=== PATIENT | male | born 2000 | race Caucasian/White ===

== ENCOUNTER 2020-12-06 22:50 | Emergency (ER) | payer OTHER, SELFPAY ==
--- NOTE | ~2020-12-06 | XR_ITS ---
XR hand RT min 3V DATE: 12/06/2020 23:40 INDICATION: Crushing injury at dorsal right hand at third metacarpophalangeal joint on TECHNIQUE: 3 views COMPARISON: None FINDINGS: No fracture or dislocation, periosteal reaction or bone destruction. IMPRESSION: Negative Reviewed, dictated and finalized at location A. 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
[2020-12-06 22:53] VITALS: BP 131/74; PULSE 72; RESP 16; TEMP 36.9; O2SAT 98
--- NOTE | 2020-12-07 00:22 | ED.GENADULT ---
HPI - General Adult General Chief complaint: Extremity Injury, Upper Stated complaint: right hand pain Time Seen by Provider: 12/07/20 00:04 Source: patient History of Present Illness HPI narrative: Patient is a 20 y/o male complaining of right hand pain after dropping a washer on his right hand earlier today. He took Tylenol, which helped slightly. He describes his pain as cramping and rates his pain as 5/10. He is able to move all fingers. Review of Systems Constitutional: Constitutional: Denies chills, Denies fever(s), Denies headache(s) and Denies weakness Eyes: Eyes: Denies blurry vision ENT: Denies headache(s) and Denies neck pain Cardiovascular: Cardiovascular: Denies chest pain and Denies dyspnea Respiratory: Respiratory: Denies cough and Denies dyspnea Gastrointestinal: Gastrointestinal: Denies abdominal pain, Denies diarrhea, Denies nausea and Denies vomiting Genitourinary: Genitourinary: Denies hematuria and Denies dysuria Musculoskeletal: Musculoskeletal: Denies back pain, Denies neck pain and Reports other (right hand pain) Neurologic: Denies headache(s) and Denies weakness Exam Const: General: no acute distress and well developed Orientation/consciousness: oriented to person, oriented to place, oriented to time and patient oriented x3 HENMT: Head: normocephalic Ears: external ears normal General nose exam: Normal external nose present Eyes: General: appearance normal, both eyes and all related structures Conjunctivae: conjunctivae normal Chest: Chest palpation & inspection: tenderness Skin: General skin exam: normal color and turgor normal Neuro: General: oriented to person, oriented to place, oriented to time and patient oriented x3 Cognition (Neuro): normal cognition Extrem: General: normal to inspection, full ROM and no pedal edema Right upper extremity: Extremity exam: right hand no swelling; no tenderness Course Vital Signs Vital signs: Vital Signs Temperature 36.9 C 12/06/20 22:53 Pulse Rate 72 12/06/20 22:53 Respiratory Rate 16 12/06/20 22:53 Blood Pressure 131/74 12/06/20 22:53 Pulse Oximetry 98 12/06/20 22:53 Temperature 36.9 C 12/06/20 22:53 Pulse Rate 98 12/07/20 00:30 Respiratory Rate 17 12/07/20 00:30 Blood Pressure 133/78 12/07/20 00:30 Pulse Oximetry 98 12/07/20 00:30 Medical Decision Making Vital Signs Vital Signs: Vital Signs Temperature 36.9 C 12/06/20 22:53 Pulse Rate 72 12/06/20 22:53 Respiratory Rate 16 12/06/20 22:53 Blood Pressure 131/74 12/06/20 22:53 Pulse Oximetry 98 12/06/20 22:53 Temperature 36.9 C 12/06/20 22:53 Pulse Rate 98 12/07/20 00:30 Respiratory Rate 17 12/07/20 00:30 Blood Pressure 133/78 12/07/20 00:30 Pulse Oximetry 98 12/07/20 00:30 Discharge Plan Discharge Clinical Impression: Contusion of hand, right Qualifiers: Encounter type: initial encounter Qualified Code(s): S60.221A - Contusion of right hand, initial encounter Patient Disposition: Home, Self-Care Condition: Stable Instructions: Contusion in Adults (ED) Follow-up/Referrals: PHYSICIAN,STORE MERCHANDISER [Primary Care Provider] - Stand Alone Forms: Work/School Release IP
[2020-12-07 00:30] VITALS: BP 133/78; PULSE 98; RESP 17; O2SAT 98
== END 2020-12-07 00:30 | disposition home or self-care (01) ==
PROVIDERS: Emergency Provider Emergency Medicine
DX: S60.221A Contusion of right hand, initial encounter (principal); W20.8XXA Other cause of strike by thrown, projected or falling object, initial encounter
CPT/HCPCS: 73130; 99283

== ENCOUNTER 2020-12-07 21:37 | Emergency (ER) | payer OTHER, SELFPAY ==
[2020-12-07 21:40] VITALS: BP 141/80; PULSE 75; RESP 20; TEMP 36.3; O2SAT 99
--- NOTE | 2020-12-07 22:02 | ED.DENTAL ---
HPI - Dental/Oral General Chief complaint: Dental/Oral Stated complaint: Tooth Pain Time Seen by Provider: 12/07/20 21:41 Source: patient Mode of arrival: ambulatory Limitations: no limitations History of Present Illness HPI Narrative: Patient is a 20-year-old male who presents with tender swollen right lower molar for the last day noting aching pain pain is remained constant took Tylenol with minimal improvement notes history of gross dental decay denies URI symptoms or vomiting presents in no distress Related Data Allergies Allergy/AdvReac Type Severity Reaction Status Date / Time Sulfa (Sulfonamide Allergy Rash Verified 12/07/20 21:42 Antibiotics) Review of Systems Review of Systems: All systems reviewed & are unremarkable except as noted in HPI and below PMFSH Social History Social History (Updated 12/07/20 @ 22:03 by Dipak Carter PA-C) Smoking status: Never smoker Gender identity (if verbalized by the patient): Male Exam Narrative: Exam Narrative: GENERAL: Well-appearing, well-nourished, and in no acute distress. HEAD: Normocephalic, atraumatic. EYES: PERRLA and EOMI. ENT: Nares clear, no rhinorrhea or epistaxis. Mucous membranes moist. Patient with abscess right posterior molar remainder of extremity unremarkable aside from gross dental decay. Floor the mouth is soft no trismus or drooling. Uvula midline NECK: Supple. No adenopathy or masses. EXTREMITIES: Normal range of motion. No edema. SKIN: Warm, dry, no rash. NEURO: No focal deficits. Alert and oriented x3. PSYCH: Normal mood and affect. Course Course Emergency Course: Patient in the room no distress aware of case findings treatment plan diagnosis agreeing to follow-up with dentistry provided with reasons to return Vital Signs Vital signs: Vital Signs Temperature 97.3 F L 12/07/20 21:40 Pulse Rate 75 12/07/20 21:40 Respiratory Rate 20 12/07/20 21:40 Blood Pressure 141/80 H 12/07/20 21:40 Pulse Oximetry 99 12/07/20 21:40 Temperature 97.3 F L 12/07/20 21:40 Pulse Rate 75 12/07/20 21:40 Respiratory Rate 20 12/07/20 21:40 Blood Pressure 141/80 H 12/07/20 21:40 Pulse Oximetry 99 12/07/20 21:40 Procedures Abscess I/D oral: Date of Incision: 12/07/20 Time of Incision: 22:04 Side (if applicable): right Technique: needle aspiration (Single straight incision with 18-gauge needle) I&D Results: Pus and Blood Complications: pain MDM - Dental/Oral MDM Narrative Medical decision making narrative: Patients pain and complaint coupled with physical findings are consistent with dentalgia. There are no focal signs of space occupying lesions that are compromising to the airway. The floor of the mouth is soft with no signs of Garland Angina. Patient is without trismus or drooling and able to swallow secretions. Patient is felt appropriate for discharge home with dental follow up. Discharge Plan Discharge Clinical Impression: Dental abscess Patient Disposition: Home, Self-Care Condition: Stable Instructions: Antibiotic Form, Dental Abscess (ED) Additional Instructions: Follow-up with dentistry in the next 7 days Return if symptoms worsen or concerns or any increase in redness swelling pain fever over 100.5 vomiting or unable to open the mouth or swallow Follow patient education sheets Only take medications as directed Prescriptions: New amoxicillin 500 mg capsule 500 mg PO Q8H 10 Days Qty: 30 RF: 0 chlorhexidine gluconate [Peridex] 0.12 % mouthwash 15 ml mucous membrane BID Qty: 1500 RF: 0 ibuprofen [IBU] 600 mg tablet 600 mg PO Q6H PRN (Reason: fever or pain) Qty: 7 RF: 0 Follow-up/Referrals: Dental Referral Line [Outside] [facility] [Outside] [facility] [place] [Outside] [facility] [Outside] PHYSICIAN,DIRECTOR OF COLLECTIONS [Primary Care Provider] - Stand Alone Forms: Work/School Release IP
[2020-12-07] MEDS: AMOXICILLIN 500 MG CAPSULE PO (22:23)
[2020-12-07] MEDS: HYDROcodone/acetaminophen (*CRX) 5-325 MG TABLET 1 TAB PO (22:23)
== END 2020-12-07 22:45 | disposition home or self-care (01) ==
LOC: ANHED 22:16
PROVIDERS: Emergency Provider Emergency Medicine
DX: K04.7 Periapical abscess without sinus (principal)
CPT/HCPCS: 41800; 99283; A9270

== ENCOUNTER 2021-03-16 19:07 | Emergency (ER) | payer OTHER, SELFPAY ==
--- NOTE | ~2021-03-16 | XR_ITS ---
EXAMINATION: XR chest 1V portable DATE: 03/16/2021 19:37 INDICATION: Cough. TECHNIQUE: A single frontal view of the chest was obtained. COMPARISON: None. FINDINGS: The chest demonstrates clear lungs without pneumonia, pleural effusion, or pneumothorax. Th e heart size is normal. IMPRESSION: 1. No acute cardiopulmonary disease. Reviewed, dictated and finalized at location A.
[2021-03-16 19:13] VITALS: BP 144/86; PULSE 97; RESP 18; TEMP 36.4; O2SAT 100
--- NOTE | 2021-03-16 19:49 | ED.GENADULT ---
HPI - General Adult General Chief complaint: Fever Stated complaint: wants covid tested. fever Time Seen by Provider: 03/16/21 19:19 Source: patient and RN notes reviewed Mode of arrival: ambulatory Limitations: no limitations History of Present Illness HPI narrative: Patient is a 20-year-old male who presents to emergency department for evaluation of headache congestion rhinorrhea minimally productive cough also noting that he cannot smell or taste symptoms for 3 days denies vomiting or diarrhea. History of tobacco abuse. Denies any dyspnea. Patient has not taken anything for his symptoms denies any exposures Related Data Allergies Allergy/AdvReac Type Severity Reaction Status Date / Time Sulfa (Sulfonamide Allergy Rash Verified 03/16/21 19:18 Antibiotics) Review of Systems Review of Systems: All systems reviewed & are unremarkable except as noted in HPI and below PMFSH Social History Social History (Updated 03/16/21 @ 19:54 by Dipak Carter PA-C) Smoking status: Current every day smoker Gender identity (if verbalized by the patient): Male Sexual Orientation (if Verbalized by the Patient): Straight or Heterosexual Exam Narrative: Exam Narrative: GENERAL: Well-appearing, well-nourished, and in no acute distress. HEAD: Normocephalic, atraumatic. EYES: PERRLA and EOMI. ENT: Nares clear, no rhinorrhea or epistaxis. Mucous membranes moist. CHEST: Clear to auscultation. No respiratory distress. No wheezes rales or rhonchi HEART: Regular rate and rhythm. No murmur heard. EXTREMITIES: Normal range of motion. No edema. SKIN: Warm, dry, no rash. NEURO: No focal deficits. Alert and oriented x3. PSYCH: Normal mood and affect. Course Course Emergency Course: Patient was tested for Covid was made aware that he will have to follow with primary care java solutions architect to get his results. Patient was instructed that he himself cannot call and get these results. Patient is afebrile nontoxic-appearing no distress no emesis no hypoxemia no pneumonia seen on exam. Patient provided with reasons to return. Patient advised to purchase a oximeter to follow his oxygen Vital Signs Vital signs: Vital Signs Temperature 97.6 F 03/16/21 19:13 Pulse Rate 97 03/16/21 19:13 Respiratory Rate 18 03/16/21 19:13 Blood Pressure 144/86 H 03/16/21 19:13 Pulse Oximetry 100 03/16/21 19:13 Temperature 97.6 F 03/16/21 19:13 Pulse Rate 97 03/16/21 19:13 Respiratory Rate 18 03/16/21 19:13 Blood Pressure 144/86 H 03/16/21 19:13 Pulse Oximetry 100 03/16/21 19:13 Medical Decision Making MDM Narrative Medical decision making narrative: Patient with upper respiratory symptoms no distress will be tested for Covid no pneumonia felt appropriate for outpatient reevaluation Vital Signs Vital Signs: Vital Signs Temperature 97.6 F 03/16/21 19:13 Pulse Rate 97 03/16/21 19:13 Respiratory Rate 18 03/16/21 19:13 Blood Pressure 144/86 H 03/16/21 19:13 Pulse Oximetry 100 03/16/21 19:13 Temperature 97.6 F 03/16/21 19:13 Pulse Rate 97 03/16/21 19:13 Respiratory Rate 18 03/16/21 19:13 Blood Pressure 144/86 H 03/16/21 19:13 Pulse Oximetry 100 03/16/21 19:13 Lab Data Labs: Lab Results 03/16/21 Range/Units 19:32 SARS-CoV-2 RNA (RT-PCR) Pending Discharge Plan Discharge Clinical Impression: Acute upper respiratory infection Patient Disposition: Home, Self-Care Condition: Stable Instructions: Antibiotic Form, Upper Respiratory Infection (ED) Additional Instructions: Follow up with your primary care provider within 1-2 days to set up for reevaluation and to obtain your COVID-19 results. Go to ER for shortness of breath, difficulty breathing, chest pain, fever/chills, weakness, nauseau/vomitting, etc. or any other concerns. Self quarantine until you have received your results Take any prescribed medications as directed. Purchase home oximeter if your oxygen
[2021-03-16 20:10] VITALS: BP 132/78; PULSE 84; RESP 16; O2SAT 97
[2021-03-17 18:42] LABS: SARS-CoV-2 RNA PCR Negative
== END 2021-03-16 20:10 | disposition home or self-care (01) ==
PROVIDERS: Emergency Medicine Emergency Medical Services; Emergency Provider Family Medicine
DX: J06.9 Acute upper respiratory infection, unspecified (principal); Z20.822 Contact with and (suspected) exposure to COVID-19; F17.200 Nicotine dependence, unspecified, uncomplicated
CPT/HCPCS: 71045; 99283; C9803; U0003; U0005

== ENCOUNTER 2021-05-17 11:39 | Emergency (ER) | payer OTHER, SELFPAY ==
[2021-05-17 12:01] VITALS: BP 132/83; PULSE 95; RESP 15; TEMP 37.1; O2SAT 100
--- NOTE | 2021-05-17 12:40 | PC.NURSE ---
Arrives ambulatory steady gait from triage, R middle finger swelling I pick my nails a lot , and I think it's going into my bloodstream, there is a red streak going up my arm . No resp distress, afebrile. CMS intact
--- NOTE | 2021-05-17 13:12 | ED.WOUNDLAC ---
HPI - Wound/Laceration General Chief Complaint: Wound/Laceration Stated Complaint: finger infection Time Seen by Provider: 05/17/21 12:08 Source: patient Mode of arrival: ambulatory Limitations: no limitations History of Present Illness HPI narrative: Patient is a 20-year-old male who presents with redness and tenderness to right middle finger. Patient reports tenderness started last p.m., he reports he bites fingernails often. Patient reports awaking this morning with red streaking up arm to elbow. He reports tenderness with palpation, denies taking any [id number] medications prior to arrival. Patient denies significant medical history. Related Data Allergies Allergy/AdvReac Type Severity Reaction Status Date / Time Sulfa (Sulfonamide Allergy Rash Verified 03/16/21 19:18 Antibiotics) Review of Systems Review of Systems: Narrative: CONSTITUTIONAL: Denies fever, chills, or sweats. EYES: Denies visual changes, redness, or discharge. ENT: Denies rhinorrhea, congestion, sore throat, or otalgia. CARDIOVASCULAR: Denies chest pain, palpitations, or edema. RESPIRATORY: Denies cough or dyspnea. GASTROINTESTINAL: Denies abdominal pain, nausea, vomiting, or diarrhea. GENITOURINARY: Denies dysuria or hematuria. SKIN: Denies rash or itching. MUSCULOSKELETAL: Denies back pain, joint pain, or myalgia. NEUROLOGIC: Denies headache, numbness, dizziness, or weakness. PSYCHIATRIC: Denies anxiety or depression. [facility] Social History Social History (Updated 03/16/21 @ 19:54 by Dipak Carter PA-C) Smoking status: Current every day smoker Gender identity (if verbalized by the patient): Male Exam Narrative: Exam Narrative: GENERAL: Well-appearing, well-nourished, and in no acute distress. HEAD: Normocephalic, atraumatic. EYES: EOMI. No redness or drainage. Conjunctiva are normal. ENT: Mucous membranes pink and moist. Nares clear. No rhinorrhea. TMs normal bilaterally. Throat normal. Uvula midline. NECK: AROM. Supple. No lymphadenopathy. CHEST: No respiratory distress. Clear to auscultation. HEART: Regular rate and rhythm. No murmur appreciated. Normal peripheral pulses. GI: Soft, nontender without rebound, or guarding. No distention. Bowel sounds normal in all quadrants. MUSCULOSKELETAL: No bony tenderness. EXTREMITIES: Normal range of motion. No edema. SKIN: Redness noted at distal tip of right third digit, erythematous streak to forearm. No drainage noted. NEURO: No focal deficits. Alert and oriented x3. Gait steady. PSYCH: Normal affect. No signs of depression or anxiety. Course Vital Signs Vital signs: Vital Signs Temperature 37.1 C 05/17/21 12:01 Pulse Rate 95 05/17/21 12:01 Respiratory Rate 15 05/17/21 12:01 Blood Pressure 132/83 05/17/21 12:01 Pulse Oximetry 100 05/17/21 12:01 Temperature 37.1 C 05/17/21 12:01 Pulse Rate 95 05/17/21 12:01 Respiratory Rate 15 05/17/21 12:01 Blood Pressure 132/83 05/17/21 12:01 Pulse Oximetry 100 05/17/21 12:01 Reviewed MDM - Wound/Laceration MDM Narrative Medical decision making narrative: Patient is afebrile nontoxic in appearance. Patient given dose of IV antibiotics in hospital. Patient to be discharged on p.o. antibiotics. Discussed with patient monitoring redness as well as increased pain and checking for fever. Patient agrees with plan of care. Patient is aware of red flags and when to return to the emergency department. Patient to follow-up with PCP in 3 to 5 days for wound recheck. Differential Diagnosis Differential diagnosis: Likely laceration, abscess, abrasion and avulsion of skin Lab Data Result diagrams: 05/17/21 13:28 05/17/21 13:28 Labs: Lab Results 05/17/21 05/17/21 Range/Units 13:28 13:28 WBC 8.0 (4.5-10.0) K/mm3 RBC 4.94 (4.6-6.20) M/mm3 Hgb 15.1 (14.0-18.0) g/dL Hct 43.8 (42.0-52.0) % MCV 88.7 (80-100) fl MCH 30.6 (26-34) pg MCHC 34.5 (32
[2021-05-17 13:35] LABS: Basophils Absolute Auto 0.1 K/mm3 (0.0-0.1); Basophils Percent Auto 0.6 % (0.2-1.2); Eosinophils Percent Auto 0.4 % (0-4.4); Hematocrit 43.8 % (42.0-52.0); Hemoglobin 15.1 g/dL (14.0-18.0); Immature Granulocyte Absolute 0.03 K/mm3 (0.00-0.031); Immature Granulocyte Percent A 0.4 % (0-0.5); Lymphocytes Absolute Auto 1.52 K/mm3 (0.9-3.2); Lymphocytes Percent Auto 18.9 % (18.3-44.2); Mean Corpuscular HGB Conc 34.5 g/dl (32-36); Mean Corpuscular Hemoglobin 30.6 pg (26-34); Mean Corpuscular Volume 88.7 fl (80-100); Mean Platelet Volume 9.2 fl (7.4-10.4); Monocytes Absolute Auto 0.9 K/mm3 (0.1-0.6); Monocytes Percent Auto 10.6 % (2.6-8.5); Neutrophils Absolute Auto 5.6 K/mm3 (1.3-6.7); Neutrophils Percent Auto 69.1 % (45.5-73.1); Platelet Count Result 209 k/mm3 (150-375); Red Blood Count 4.94 M/mm3 (4.6-6.20); Red Cell Distribution Width 12.4 % (11.5-14.5)
[2021-05-17 13:49] LABS: Alanine Aminotransferase 20 U/L (4-50); Albumin Level 4.6 g/dL (3.5-5.1); Alkaline Phosphatase 76 U/L (38-126); Anion Gap 7 mmol/L (8-16); Aspartate Amino Transferase 35 U/L (17-59); Bilirubin,Total 0.4 mg/dL (0.2-1.3); Blood Urea Nitrogen 8 mg/dL (9-20); Calcium 9.3 mg/dL (8.4-10.2); Carbon Dioxide 23 mmol/L (22-30); Chloride 108 mmol/L (98-107); Estimated CRCL calculation 128 ml/min; Estimated Glomerular Filt Rate > 60; Glucose 85 mg/dL (75-110); Potassium 4.7 mmol/L (3.4-5.0); Sodium 138 mmol/L (137-145)
[2021-05-17] MEDS: KETOROLAC 30 MG/ML VIAL (*BKC) (14:43)
[2021-05-17] MEDS: KETOROLAC 30 MG/ML VIAL (*BKC) IV PUSH (15:22)
== END 2021-05-17 15:56 | disposition home or self-care (01) ==
PROVIDERS: Emergency Provider Nurse Practitioner
DX: L03.011 Cellulitis of right finger (principal); F17.200 Nicotine dependence, unspecified, uncomplicated
CPT/HCPCS: 36415; 80053; 85025; 96365; 96375; 96376; 99284; J0690; J1885

== ENCOUNTER 2021-07-11 23:16 | Emergency (ER) | payer OTHER, SELFPAY ==
[2021-07-11 23:22] VITALS: BP 148/89; PULSE 75; RESP 20; TEMP 36.8; O2SAT 98
--- NOTE | 2021-07-11 23:53 | ED.FEVER ---
HPI - Fever General Chief Complaint: Fever Stated Complaint: fever, chills Time Seen by Provider: 07/11/21 23:40 Source: patient Mode of arrival: ambulatory Limitations: no limitations History of Present Illness HPI Narrative: Patient is a 20-year-old male complaining of fever, cough, nasal congestion, diarrhea and a sore throat that started yesterday. Patient denies any chest pain, shortness of breath, abdominal pain, nausea, vomiting, or rash. Patient states that he is not vaccinated. Related Data Allergies Allergy/AdvReac Type Severity Reaction Status Date / Time Sulfa (Sulfonamide Allergy Rash Verified 07/11/21 23:31 Antibiotics) Review of Systems Review of Systems: All systems reviewed & are unremarkable except as noted in HPI and below PMFSH Social History Social History Smoking status: Current every day smoker Gender identity (if verbalized by the patient): Male Sexual Orientation (if Verbalized by the Patient): Straight or Heterosexual Comments Past medical history: None Family history: None Social history: Positive for smoker, no EtOH or drug use Exam Const: General: cooperative, healthy appearing, comfortable, no acute distress, well developed, alert and awake; No confusion Orientation/consciousness: oriented to person, oriented to place, oriented to time, patient oriented x3 and No confusion Limitations: no limitations HENMT: Head: normal to inspection, normocephalic and atraumatic Ears: hearing grossly normal bilaterally, TM normal on the right and TM normal on the left General nose exam: Normal external nose present, Normal nares present and No nasal discharge present Face and sinus: normal facial exam Mouth: Yes Normal oral and palatal mucosa present, Yes lip normal, Yes tongue normal and Yes oropharynx normal Throat: tonsils normal and uvula midline Other: Slightly erythematous posterior oropharynx, negative for edema or exudates Eyes: General: appearance normal, both eyes and all related structures Pupils: Equal, round and reactive pupils present EOM: EOMs intact bilaterally Neck: Neck: normal visual inspection, full ROM, no lymphadenopathy and no meningeal signs Chest: Chest palpation & inspection: normal inspection of the chest Resp: Effort & Inspection: normal respiratory effort, able to speak in complete sentences, no respiratory distress and not tachypneic Auscultation: clear to auscultation bilaterally, no crackles, no rales, no rhonchi and no wheezes Cardio: Rate: regular rate Rhythm: regular rhythm GI: Inspection: normal to inspection GI Palp: No abdominal tenderness, Yes Soft to palpation, No Tenderness to palpation present (GI), No Guarding due to palpation present (GI), No Rigid due to palpation and No Rebound tenderness present Auscultation: normal bowel sounds : General: Yes no CVA tenderness Back/Spine/Pelvis: Back: no CVA tenderness Skin: General skin exam: normal color, no rashes or lesions noted, elasticity normal and turgor normal Neuro: General: oriented to person, oriented to place, oriented to time, patient oriented x3, tone normal, moves all extremities, Normal light touch and pain sensation, no meningeal signs, no focal motor deficits, CN's II-XI intact bilaterally and No confusion Cranial nerves: Yes Equal, round and reactive pupils present Speech: No Abnormal speech present Sensory Exam: No Sensory deficit (Neuro) Extrem: General: normal to inspection, full ROM and capillary refill normal Psych: Appearance: grossly normal and well kempt Mental Status: mental status grossly normal Speech and movement: Normal speech and movement present Affect: normal affect Attitude: cooperative Thought process: Normal thought process present Thought content: Yes Normal thought content present Insight: Good insight present (Psych) Judgement: Good judgement present (Psych) Course Vital Signs Vital signs:
[2021-07-12] MEDS: IBUPROFEN 400 MG TABLET 800 MG PO (00:20)
[2021-07-12 00:23] VITALS: BP 138/87; PULSE 78; RESP 17; O2SAT 100
== END 2021-07-12 00:24 | disposition home or self-care (01) ==
PROVIDERS: Emergency Provider Emergency Medicine
DX: B34.9 Viral infection, unspecified (principal); F17.210 Nicotine dependence, cigarettes, uncomplicated
CPT/HCPCS: 87081; 87880; 99283; A9270

== ENCOUNTER 2021-07-24 17:04 | Emergency (ER) | payer OTHER, SELFPAY ==
--- NOTE | ~2021-07-24 | CT_ITS ---
EXAMINATION: CT soft tissue neck w con EXAM DATE: 07/24/2021 20:37 INDICATION: sore throat fever TECHNIQUE: Spiral CT of the neck was performed following intravenous injection of 75 mL Omnipaque 350 . Axial, coronal and sagittal images were reviewed. The dose-length product (DLP) for this examinat ion was 500.92 mGy-cm. The exposure was tailored according to patient size (auto mA exposure control ), and iterative reconstruction (ASIR) was used as additional dose reduction technique. There is no prior study for comparison. FINDINGS: Tonsils are mildly enlarged, more on the left side. No discrete organized drainable abscess . Epiglottis is normal in thickness. The thyroid gland is unremarkable. The submandibular and paro tid glands are symmetric. There is no cervical lymphadenopathy. There are no masses identified. The superior mediastinum is unremarkable. The airway is unremarkable. Parapharyngeal and pre-miguel ttic fat planes are preserved. The opacified vasculature is patent. The orbits are unremarkable. Visualized sinuses and mastoid air cells are well aerated. Lung apices are clear. There is cervi dafne spondylosis. Field IMPRESSION: Enlarged lingual and palatine tonsils, more on the left but without organized drainable abscess. Reviewed, dictated and finalized at location G. IMPRESSION: Enlarged lingual and palatine tonsils, more on the left but withou t organized drainable abscess.
--- NOTE | ~2021-07-24 | XR_ITS ---
XR chest 2V DATE: 07/24/2021 17:47 INDICATION: Fever, cough, congestion for 2 weeks. Smoker. TECHNIQUE: PA and lateral views COMPARISON: 03/16/2021 portable AP chest FINDINGS: Normal heart size. No hilar or mediastinal enlargement. Bilateral hyperinflation. No pulmon dilip infiltrate or consolidation, pleural effusion or pulmonary vascular congestion or pneumothorax. I ncluded skeletal structures are unremarkable. IMPRESSION: Bilateral hyperinflation; no active cardiopulmonary disease Reviewed, dictated and finalized at location A.
[2021-07-24 17:18] VITALS: BP 134/66; PULSE 94; RESP 18; TEMP 37.7; O2SAT 98
[2021-07-24 18:09] LABS: Basophils Absolute Auto 0.1 K/mm3 (0.0-0.1); Basophils Percent Auto 0.3 % (0.2-1.2); Hematocrit 38.1 % (42.0-52.0); Immature Granulocyte Percent A 0.6 % (0-0.5); Lymphocytes Absolute Auto 1.75 K/mm3 (0.9-3.2); Lymphocytes Percent Auto 10.3 % (18.3-44.2); Mean Corpuscular HGB Conc 34.1 g/dl (32-36); Mean Corpuscular Hemoglobin 30.5 pg (26-34); Mean Corpuscular Volume 89.4 fl (80-100); Mean Platelet Volume 9.1 fl (7.4-10.4); Monocytes Absolute Auto 1.6 K/mm3 (0.1-0.6); Monocytes Percent Auto 9.2 % (2.6-8.5); Neutrophils Absolute Auto 13.5 K/mm3 (1.3-6.7); Neutrophils Percent Auto 79.6 % (45.5-73.1); Platelet Count Result 219 k/mm3 (150-375); Red Blood Count 4.26 M/mm3 (4.6-6.20); Red Cell Distribution Width 12.8 % (11.5-14.5)
[2021-07-24 18:17] LABS: Anion Gap 10 mmol/L (8-16); Blood Urea Nitrogen 11 mg/dL (9-20); Calcium 8.5 mg/dL (8.4-10.2); Carbon Dioxide 23 mmol/L (22-30); Chloride 104 mmol/L (98-107); Estimated CRCL calculation 161 ml/min; Estimated Glomerular Filt Rate > 60; Glucose 129 mg/dL (65-110); Potassium 3.6 mmol/L (3.4-5.0); Sodium 137 mmol/L (137-145)
--- NOTE | 2021-07-24 18:19 | ED.GENADULT ---
HPI - General Adult General Chief complaint: Fever Stated complaint: 104 fever, covid negative last week Time Seen by Provider: 07/24/21 17:30 Source: patient History of Present Illness HPI narrative: Patient is a 20 y/o male complaining fever for about 1 week. He states that he had temp of 104.2 earlier today. He took Tylenol and Ibuprofen, which helps some. He also has some sore throat. He states that he has a chronic cough due to smoking. He was seen at urgent care last and given an unknown antibiotic for sore throat. He states that he got better a few days and felt bad again since yesterday. Related Data Allergies Allergy/AdvReac Type Severity Reaction Status Date / Time Sulfa (Sulfonamide Allergy Rash Verified 07/11/21 23:31 Antibiotics) Review of Systems Constitutional: Constitutional: Denies chills, Reports fever(s), Reports headache(s) and Denies weakness Eyes: Eyes: Denies blurry vision ENT: Reports headache(s), Denies neck pain and Reports sore throat Cardiovascular: Cardiovascular: Denies chest pain and Denies dyspnea Respiratory: Respiratory: Reports cough and Denies dyspnea Gastrointestinal: Gastrointestinal: Denies abdominal pain, Denies diarrhea, Denies nausea and Denies vomiting Genitourinary: Genitourinary: Denies hematuria and Denies dysuria Musculoskeletal: Musculoskeletal: Denies back pain and Denies neck pain Neurologic: Reports headache(s) and Denies weakness [facility] Social History Social History Smoking status: Current every day smoker Gender identity (if verbalized by the patient): Male Sexual Orientation (if Verbalized by the Patient): Straight or Heterosexual Exam Const: General: no acute distress and well developed Orientation/consciousness: oriented to person, oriented to place, oriented to time and patient oriented x3 HENMT: Head: normocephalic Ears: external ears normal General nose exam: Normal external nose present Eyes: General: appearance normal, both eyes and all related structures Conjunctivae: conjunctivae normal Neck: Neck: normal visual inspection and full ROM Chest: Chest palpation & inspection: normal inspection of the chest and no tenderness Resp: Effort & Inspection: normal respiratory effort Auscultation: clear to auscultation bilaterally Cardio: Rate: regular rate Rhythm: regular rhythm GI: GI Palp: No abdominal tenderness and Yes Soft to palpation Skin: General skin exam: normal color and turgor normal Neuro: General: oriented to person, oriented to place, oriented to time and patient oriented x3 Cognition (Neuro): normal cognition Extrem: General: normal to inspection, full ROM and no pedal edema Psych: Appearance: grossly normal Mental Status: mental status grossly normal Affect: normal affect Course Vital Signs Vital signs: Vital Signs Temperature 37.7 C H 07/24/21 17:18 Pulse Rate 94 07/24/21 17:18 Respiratory Rate 18 07/24/21 17:18 Blood Pressure 134/66 07/24/21 17:18 Pulse Oximetry 98 07/24/21 17:18 Temperature 37.4 C 07/24/21 20:52 Pulse Rate 78 07/24/21 22:06 Respiratory Rate 18 07/24/21 22:06 Blood Pressure 130/78 07/24/21 22:06 Pulse Oximetry 100 07/24/21 22:06 Medical Decision Making Vital Signs Vital Signs: Vital Signs Temperature 37.7 C H 07/24/21 17:18 Pulse Rate 94 07/24/21 17:18 Respiratory Rate 18 07/24/21 17:18 Blood Pressure 134/66 07/24/21 17:18 Pulse Oximetry 98 07/24/21 17:18 Temperature 37.4 C 07/24/21 20:52 Pulse Rate 78 07/24/21 22:06 Respiratory Rate 18 07/24/21 22:06 Blood Pressure 130/78 07/24/21 22:06 Pulse Oximetry 100 07/24/21 22:06 Lab Data Result diagrams: 07/24/21 17:58 07/24/21 17:58 Labs: Lab Results 07/24/21 07/24/21 07/24/21 Range/Units 17:58 17:58 17:59 WBC 17.0 H (4.5-10.0) K/mm3 RBC 4.26 L (4.6-6.20) M/mm3 Hg
[2021-07-24 18:30] LABS: Add Urine Microscopic? YES; Appearance Urine Clear (Clear); Bacteria Urine Trace /hpf; Bilirubin Urine Negative (Negative); Blood Urine 1+ (Negative); Color Urine Yellow (Yellow); Glucose Urine UA Negative (Negative); Ketones Urine Negative (Negative); Leukocyte Esterase Ur Negative LEU/UL (Negative); Mucus Urine Rare /lpf; Nitrate Urine Negative (Negative); Protein Urine 1+ mg/dL (Negative); RBC Urine 21-50 /hpf (0-2); Specific Grav Ur 1.024 (1.001-1.035); Squamous Epithelial Cell Urine Rare /hpf (Few)
[2021-07-24 18:36] LABS: EDCOVIDSCREEN Negative (Negative)
[2021-07-24] MEDS: SODIUM CHLORIDE 0.9% IV 1,000 ML 999 ML IV CONT (18:48)
[2021-07-24 19:02] VITALS: BP 130/60; PULSE 90; RESP 17; O2SAT 98
[2021-07-24 19:23] LABS: Lactic Acid Reflex 0.5 mmol/L (0.7-2.1)
[2021-07-24 20:52] VITALS: BP 126/80; PULSE 88; RESP 18; TEMP 37.4; O2SAT 100
[2021-07-24 22:06] VITALS: BP 130/78; PULSE 78; RESP 18; O2SAT 100
== END 2021-07-24 22:06 | disposition home or self-care (01) ==
PROVIDERS: Emergency Provider Emergency Medicine
DX: J02.9 Acute pharyngitis, unspecified (principal); R50.9 Fever, unspecified; F17.210 Nicotine dependence, cigarettes, uncomplicated; Z20.822 Contact with and (suspected) exposure to COVID-19
CPT/HCPCS: 36415; 70491; 71046; 80048; 81001; 83605; 85025; 87040; 87081; 87426; 87880; 96360; 99284; C9803; J7030; Q9967

== ENCOUNTER 2022-04-15 18:16 | Emergency (ER) | payer OTHER, SELFPAY ==
--- NOTE | ~2022-04-15 | XR_ITS ---
EXAM: XR ankle LT min 3V DATE: 04/15/2022 18:38 HISTORY: rolled ankle saturday, pain/swelling to lateral side . COMPARISON: None available. FINDINGS: Normal mineralization. No fracture or dislocation. No lytic or blastic lesion. Joint space s are maintained. No erosion or periosteal change. Soft tissues within normal limits. IMPRESSION: No acute osseous finding in the left ankle. Reviewed, dictated and finalized at location K.
[2022-04-15 18:17] VITALS: BP 153/97; PULSE 78; RESP 16; TEMP 36.4; O2SAT 100
--- NOTE | 2022-04-15 18:58 | ED.LOWEXIN ---
HPI - Extremity Injury (Lower) General Chief Complaint: Extremity Injury, Lower Stated Complaint: left ankle injury Time Seen by Provider: 04/15/22 18:23 History of Present Illness HPI Narrative: Patient is a 21-year-old male who presents ER with left ankle pain. Lateral malleolus. Anterior aspect. Has numbness going into the toe. Reports he stepped in a hole yesterday and twisted his ankle. This caused the discomfort. He has been able to bear weight. Related Data Allergies Allergy/AdvReac Type Severity Reaction Status Date / Time Sulfa (Sulfonamide Allergy Rash Verified 04/15/22 18:19 Antibiotics) Review of Systems Constitutional: Constitutional: Denies chills and Denies fever(s) Musculoskeletal: Musculoskeletal: Reports arthralgias, Denies joint swelling and Denies muscle cramps Neurologic: Denies focal weakness and Reports numbness PMFSH Past Medical History Medical History (Updated 04/15/22 @ 21:59 by Leonardo Gross MD) Healthy adult male Surgical History Surgical History (Updated 04/15/22 @ 21:59 by Leonardo Gross MD) No pertinent past surgical history Social History Social History Smoking status: Current every day smoker Gender identity (if verbalized by the patient): Male Sexual Orientation (if Verbalized by the Patient): Straight or Heterosexual Exam Narrative: GENERAL: Well-appearing, well-nourished, and in no acute distress. HEAD: Normocephalic, atraumatic. CHEST: Clear to auscultation. No respiratory distress. HEART: Regular rate and rhythm. Normal peripheral pulses. EXTREMITIES: Left ankle with tenderness over the anterior aspect of the lateral malleolus. There is some redness noted from patient rubbing it. Normal dorsalis pedis pulse and posterior tibial pulses. Patient has normal plantarflexion and dorsiflexion at the ankle, as well as normal flexion extension of the toes. Patient reports decreased sensation over the great toe and just proximal to the first MTP with pinprick. SKIN: Warm, dry, no rash. NEURO: Alert and oriented x3. PSYCH: Normal mood and affect. Course Course Emergency Course: Unremarkable imaging. May have some numbness related to swelling. Will give Cl wrap and treatment plan for ankle sprain. Vital Signs Vital signs: Vital Signs Temperature 97.6 F 04/15/22 18:17 Pulse Rate 78 04/15/22 18:17 Respiratory Rate 16 04/15/22 18:17 Blood Pressure 153/97 H 04/15/22 18:17 Pulse Oximetry 100 04/15/22 18:17 Oxygen Delivery Room Air 04/15/22 18:17 Temperature 97.6 F 04/15/22 18:17 Pulse Rate 78 04/15/22 18:17 Respiratory Rate 16 04/15/22 18:17 Blood Pressure 153/97 H 04/15/22 18:17 Pulse Oximetry 100 04/15/22 18:17 Oxygen Delivery Room Air 04/15/22 18:17 MDM - Extremity Injury (Lower) Imaging Data Radiologist's impression: ITS Impressions Ankle X-Ray 04/15/22 18:45 IMPRESSION: No acute osseous finding in the left ankle. Discharge Plan Discharge Clinical Impression: Ankle sprain and strain Patient Disposition: Home, Self-Care Condition: Stable Instructions: Ankle Sprain (ED), P.R.I.C.E. Treatment (ED) Additional Instructions: Return to the ER if you have additional injury, you have chest pain or shortness of breath, you have additional concerns. Take ibuprofen for pain. Prescriptions: New ibuprofen 600 mg tablet 600 mg PO TID Qty: 20 0RF No Action ibuprofen [Motrin IB] 200 mg capsule 600 mg PO Q6H PRN (Reason: fever or pain) Qty: 7 0RF albuterol sulfate 90 mcg/actuation HFA aerosol inhaler 2 puff inhalation QID PRN (Reason: shortness of breath or wheezing) Qty: 1 0RF loratadine [Claritin] 10 mg tablet 10 mg PO DAILY PRN (Reason: allergy symptoms) Qty: 10 0RF amoxicillin-pot clavulanate [Augmentin] 875-125 mg tablet 1 tablet PO Q12H Qty: 20 0RF Follow-up/Referrals: Kyle
== END 2022-04-15 20:30 | disposition home or self-care (01) ==
PROVIDERS: Emergency Provider Emergency Medicine
DX: S93.402A Sprain of unspecified ligament of left ankle, initial encounter (principal); S96.912A Strain of unspecified muscle and tendon at ankle and foot level, left foot, initial encounter; F17.200 Nicotine dependence, unspecified, uncomplicated; X50.9XXA Other and unspecified overexertion or strenuous movements or postures, initial encounter
CPT/HCPCS: 73610; 99283

== ENCOUNTER 2022-05-21 03:03 | Emergency (ER) | payer OTHER, SELFPAY ==
[2022-05-21 03:07] VITALS: BP 134/90; PULSE 88; RESP 16; O2SAT 98
--- NOTE | 2022-05-21 03:23 | ED.PSYCH ---
HPI - Psych General Chief Complaint: Psychiatric Symptoms Stated Complaint: SI Time Seen by Provider: 05/21/22 03:16 Source: patient History of Present Illness HPI Narrative: Patient presents with thoughts of pain himself. Patient ports he was recently diagnosed with depression. He reports been arguing with his girlfriend and they recently broke up. Reports she took his phone and he has nowhere else to go so he came to the emergency room. Reports he is having 5 hurting him so by hanging over the past week or so since he has been arguing with his girlfriend. Exam improves admitted for suicidal ideation is attempted to harm himself. He is not currently on any medications. Related Data Allergies Allergy/AdvReac Type Severity Reaction Status Date / Time Sulfa (Sulfonamide Allergy Rash Verified 04/15/22 18:19 Antibiotics) Review of Systems Review of Systems: CONSTITUTIONAL: Denies fever, chills, or sweats. EYES: Denies visual changes, redness, or discharge. ENT: Denies rhinorrhea, congestion, sore throat, or otalgia. CARDIOVASCULAR: Denies chest pain, palpitations, or edema. RESPIRATORY: Denies cough or dyspnea. GASTROINTESTINAL: Denies abdominal pain, nausea, vomiting, or diarrhea. GENITOURINARY: Denies dysuria or hematuria. SKIN: Denies rash or itching. MUSCULOSKELETAL: Denies back pain, joint pain, or myalgia. NEUROLOGIC: Denies headache, numbness, dizziness, or weakness. PSYCHIATRIC: Reports feeling depressed All systems reviewed & are unremarkable except as noted in HPI and below PMFSH Past Medical History Medical History Healthy adult male Surgical History Surgical History No pertinent past surgical history Social History Social History Smoking status: Current every day smoker Substance use type: marijuana Gender identity (if verbalized by the patient): Male Sexual Orientation (if Verbalized by the Patient): Straight or Heterosexual Exam Narrative: GENERAL: Well-appearing, well-nourished, and in no acute distress. HEAD: Normocephalic, atraumatic. EYES: PERRLA and EOMI. ENT: Nares clear, no rhinorrhea or epistaxis. Mucous membranes moist. NECK: Supple. No masses. No JVD CHEST: Clear to auscultation. No respiratory distress. No wheezes rales or rhonchi HEART: Regular rate and rhythm. No murmur heard. Normal peripheral pulses. ABDOMEN: Soft, nontender, nondistended, normal active bowel sounds. EXTREMITIES: Normal range of motion. No edema. SKIN: Warm, dry, no rash. NEURO: No focal deficits. Alert and oriented x3. No clonus PSYCH: Normal mood and affect. Course Reevaluation(s) Reevaluation #1: Patient was evaluated by crisis recommends outpatient safety plan. Patient is comfortable with outpatient plan. Date: 05/21/22 Time: 06:23 Consultations Consultation #1: Patient is medically clear and appropriate for crisis evaluation. Date: 05/21/22 Time: 03:59 Vital Signs Vital signs: Vital Signs Pulse Rate 88 05/21/22 03:07 Respiratory Rate 16 05/21/22 03:07 Blood Pressure 134/90 05/21/22 03:07 Pulse Oximetry 98 05/21/22 03:07 Oxygen Delivery Room Air 05/21/22 03:07 Pulse Rate 76 05/21/22 06:41 Respiratory Rate 18 05/21/22 06:41 Blood Pressure 135/86 05/21/22 06:41 Pulse Oximetry 98 05/21/22 06:41 Oxygen Delivery Room Air 05/21/22 03:07 MDM - Psych MDM Narrative Medical decision making narrative: H&P as above, vss, pt looks clinically well, exam without toxidrome, labs clinically unremarkable, additional labs/img considered, symptomatic relief available as needed, on reevaluation pt continues to looks clinically well. Suspect low risk suicidal ideatio. plan to tx/monitor as op w/ pcm f/u findings/plan discussed with pt, pt agree/comfortable with plan, return precautions given Lab Da
[2022-05-21 03:40] LABS: Appearance Urine Clear (Clear); Basophils Absolute Auto 0.1 K/mm3 (0.0-0.1); Basophils Percent Auto 0.5 % (0.2-1.2); Bilirubin Urine 1+ (Negative); Blood Urine Negative (Negative); Color Urine Yellow (Yellow); Eosinophils Absolute Auto 0.1 K/mm3 (0-0.3); Eosinophils Percent Auto 0.8 % (0-4.4); Glucose Urine UA Negative (Negative); Hematocrit 42.2 % (42.0-52.0); Hemoglobin 14.4 g/dL (14.0-18.0); Immature Granulocyte Absolute 0.03 K/mm3 (0.00-0.031); Immature Granulocyte Percent A 0.3 % (0-0.5); Ketones Urine Negative (Negative); Leukocyte Esterase Ur Negative LEU/UL (Negative); Lymphocytes Absolute Auto 2.91 K/mm3 (0.9-3.2); Lymphocytes Percent Auto 29.8 % (18.3-44.2); Mean Corpuscular HGB Conc 34.1 g/dl (32-36); Mean Corpuscular Hemoglobin 30.3 pg (26-34); Mean Corpuscular Volume 88.7 fl (80-100); Mean Platelet Volume 8.7 fl (7.4-10.4); Monocytes Absolute Auto 0.7 K/mm3 (0.1-0.6); Monocytes Percent Auto 7.1 % (2.6-8.5); Neutrophils Percent Auto 61.5 % (45.5-73.1); Nitrate Urine Negative (Negative); Platelet Count Result 268 k/mm3 (150-375); Protein Urine Negative (Negative); Red Blood Count 4.76 M/mm3 (4.6-6.20); Red Cell Distribution Width 12.7 % (11.5-14.5); Specific Grav Ur >= 1.030 (1.001-1.035); Urobilinogen Urine 0.2 mg/dL (<2.0); White Blood Count 9.8 K/mm3 (4.5-10.0)
[2022-05-21 03:43] LABS: Mucus Urine Few /lpf
[2022-05-21 03:47] LABS: Add Urine Microscopic? YES
[2022-05-21 03:52] LABS: Acetaminophen < 10 ug/mL (10-30); Alanine Aminotransferase 25 U/L (6-50); Albumin Level 4.8 g/dL (3.5-5.1); Alkaline Phosphatase 75 U/L (38-126); Anion Gap 7 mmol/L (8-16); Aspartate Amino Transferase 35 U/L (17-59); Bilirubin,Total 0.6 mg/dL (0.2-1.3); Blood Urea Nitrogen 16 mg/dL (9-20); Calcium 9.1 mg/dL (8.4-10.2); Carbon Dioxide 28 mmol/L (22-30); Chloride 105 mmol/L (98-107); Estimated CRCL calculation 115 ml/min; Estimated Glomerular Filt Rate > 60; Ethanol < 10 mg/dL (<10); Glucose 83 mg/dL (65-110); Potassium 4.7 mmol/L (3.4-5.0); Sodium 140 mmol/L (137-145)
[2022-05-21 03:57] LABS: Amphetamine Screen Urine Negative (Negative); Barbiturate Screen Urine Negative (Negative); Benzodiazepines Screen Urine Negative (Negative); Cannabinoid Screen Urine Positive (Negative); Cocaine Screen Urine Negative (Negative); Methadone Screen Urine Negative (Negative); Opiate Screen Urine Negative (Negative); Phencyclidine Screen Urine Negative (Negative)
--- NOTE | 2022-05-21 04:00 | PC.NURSE ---
Pt medically cleared for eval by EDJamie Geiger at this time. Crisis notified of need for eval.
[2022-05-21 04:18] LABS: SARS-CoV-2 RNA PCR Negative
--- NOTE | 2022-05-21 06:15 | PC.NURSE ---
[facility] has evaluated the pt and has decided the pt is safe to go home on a safety contract. Dr. Geiger informed and agrees to plan.
[2022-05-21 06:41] VITALS: BP 135/86; PULSE 76; RESP 18; O2SAT 98
== END 2022-05-21 06:43 | disposition home or self-care (01) ==
PROVIDERS: Emergency Provider Emergency Medicine
DX: R45.851 Suicidal ideations (principal); Z20.822 Contact with and (suspected) exposure to COVID-19; F32.A Depression, unspecified; F17.200 Nicotine dependence, unspecified, uncomplicated
CPT/HCPCS: 36415; 80053; 80307; 81001; 85025; 87086; 99284; C9803; U0003; U0005

== ENCOUNTER 2023-04-09 09:54 | Emergency (ER) | payer SELFPAY ==
[2023-04-09 09:59] VITALS: BP 143/92; PULSE 89; RESP 17; TEMP 36.6; O2SAT 97
--- NOTE | 2023-04-09 10:12 | ED.GENADULT ---
HPI - General Adult General Chief complaint: Skin/Abscess/Foreign Body Stated complaint: RASH Time Seen by Provider: 04/09/23 10:05 Source: patient Mode of arrival: ambulatory Limitations: no limitations History of Present Illness HPI narrative: This is a 22-year-old male who presents to the ED with chief complaint of a rash onset x3 days. Patient states that he first noticed this on his torso and has since had spreading of the rash to his arms and legs. Reports intense burning and itching. Reports that he does work outside a lot for his job and works around foliage often. 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 States his boss was specifically concerned for poison sumac. Denies fevers, chills. Denies any new medications, soaps or lotions, animal exposure. Denies tongue swelling or shortness of breath. Related Data Allergies Allergy/AdvReac Type Severity Reaction Status Date / Time Sulfa (Sulfonamide Allergy Rash Verified 04/09/23 10:02 Antibiotics) Review of Systems Review of Systems: CONSTITUTIONAL: Denies fever, chills, or sweats. EYES: Denies visual changes, redness, or discharge. ENT: Denies rhinorrhea, congestion, sore throat, or otalgia. CARDIOVASCULAR: Denies chest pain, palpitations, or edema. RESPIRATORY: Denies cough or dyspnea. GASTROINTESTINAL: Denies abdominal pain, nausea, vomiting, or diarrhea. GENITOURINARY: Denies dysuria or hematuria. SKIN: See HPI. MUSCULOSKELETAL: Denies back pain, joint pain, or myalgia. NEUROLOGIC: Denies headache, numbness, dizziness, or weakness. PSYCHIATRIC: Denies anxiety or depression. PMFSH Past Medical History Medical History Healthy adult male Surgical History Surgical History No pertinent past surgical history Social History Social History Smoking status: Current every day smoker Substance use type: marijuana Gender identity (if verbalized by the patient): Male Sexual Orientation (if Verbalized by the Patient): Straight or Heterosexual Exam Narrative: GENERAL: Well-appearing, well-nourished, and in no acute distress. HEAD: Normocephalic, atraumatic. EYES: PERRLA and EOMI. ENT: Nares clear, no rhinorrhea or epistaxis. Mucous membranes moist. Oropharynx without tonsillar hypertrophy exudate or other lesions. NECK: Supple. No adenopathy or masses. CHEST: No respiratory distress. Clear to auscultation. No wheezes rales or rhonchi HEART: Regular rate and rhythm. No murmur heard. Normal peripheral pulses. ABDOMEN: Soft, nontender, nondistended, normal active bowel sounds. MSK: Normal range of motion. No edema. SKIN: Maculopapular rash throughout the upper torso. There is evidence of rash in the upper extremities and lower extremities as well. Seems to be most concentrated on the right side of the chest. NEURO: Alert and oriented x3. No focal deficits. PSYCH: Normal mood and affect. Course Vital Signs Vital signs: Vital Signs Temperature 98 F 04/09/23 09:59 Pulse Rate 89 04/09/23 09:59 Respiratory Rate 17 04/09/23 09:59 Blood Pressure 143/92 H 04/09/23 09:59 Pulse Oximetry 97 04/09/23 09:59 Oxygen Delivery Room Air 04/09/23 09:59 Temperature 98 F 04/09/23 09:59 Pulse Rate 92 04/09/23 10:32 Respiratory Rate 18 04/09/23 10:32 Blood Pressure 133/81 04/09/23 10:32 Pulse Oximetry 98 04/09/23 10:32 Oxygen Delivery Room Air 04/09/23 09:59 Medical Decision Making [facility] Narrative Medical decision making narrative: This is a 22-year-old male who presents to the ED with chief complaint of a rash x4 days. Vitals are stable. Exam shows maculopapular rash. Given his story and presentation, rash seems to be consistent with some sort of poison carmelita or poison sumac. He will be given prescription for prednisone and Zanfel. Discharged in stable
[2023-04-09] MEDS: KETOROLAC 30 MG/ML VIAL (*BKC) IM (10:30)
[2023-04-09] MEDS: diphenhydrAMINE HCl CAP 25 MG CAPSULE PO (10:30)
[2023-04-09 10:32] VITALS: BP 133/81; PULSE 92; RESP 18; O2SAT 98
== END 2023-04-09 10:50 | disposition home or self-care (01) ==
LOC: ANHED 10:32
PROVIDERS: Emergency Provider Physician Assistant
DX: L23.7 Allergic contact dermatitis due to plants, except food (principal); F17.200 Nicotine dependence, unspecified, uncomplicated
CPT/HCPCS: 96372; 99283; A9270; J1885